=== PATIENT | female | born 2000 | race African-American/Black ===

== ENCOUNTER 2022-09-17 23:32 | Emergency (ER) | payer OTHER ==
[2022-09-17 23:39] VITALS: BP 110/78; PULSE 90; RESP 18; TEMP 98.4; BMI 23.0
[2022-09-18] MEDS: CEPHALEXIN MONOHYDRATE 500 MG CAPSULE (UD) PO ONE ×2 (01:07→01:15)
[2022-09-18] MEDS: ACETAMINOPHEN 325 MG TABLET (FP) PO ONE ×2 (01:07→01:15)
[2022-09-18] MEDS ORDERED: CEPHALEXIN MONOHYDRATE 500 MG CAPSULE (UD) ONE (01:11)
[2022-09-18] MEDS ORDERED: ACETAMINOPHEN 325 MG TABLET (FP) ONE (01:11)
== END 2022-09-18 01:08 | disposition home or self-care (01) ==
LOC: JER 23:32
DX: R22.31 Localized swelling, mass and lump, right upper limb (principal)
CPT/HCPCS: 99283-25